=== PATIENT | male | born 1945 | race Native Hawaiian/Other Pacific Islander ===

== ENCOUNTER 2016-12-02 10:05 | Outpatient (CLI) | payer OTHER | END 2016-12-02 19:31 | disposition home or self-care (01) | LOC: RESP 10:05 | DX: R06.09 Other forms of dyspnea (principal) | CPT/HCPCS: 94664 ==

== ENCOUNTER 2017-02-20 15:01 | Outpatient (CLI) | payer OTHER | END 2017-02-20 22:06 | disposition home or self-care (01) | LOC: LABW 15:01 | DX: R09.02 Hypoxemia (principal) | CPT/HCPCS: 36415; 36600; 82785; 82805; 86003 ==

== ENCOUNTER 2018-05-01 16:16 | Outpatient (CLI) | payer OTHER | END 2018-05-01 19:59 | disposition home or self-care (01) | LOC: RAD 16:16 | DX: Z01.818 Encounter for other preprocedural examination (principal) ==

== ENCOUNTER 2018-05-20 07:31 | Day surgery (SDC) | payer OTHER | END 2018-05-20 09:44 | disposition home or self-care (01) | LOC: OR 07:31 | PROC: 3E0T3TZ Introduction of Destructive Agent into Peripheral Nerves and Plexi, Percutaneous Approach (ICD-10-PCS; principal; 2018-05-20) | PROC: BR16YZZ Fluoroscopy of Lumbar Facet Joint(s) using Other Contrast (ICD-10-PCS; 2018-05-20) | DX: M47.817 Spondylosis without myelopathy or radiculopathy, lumbosacral region (principal) | CPT/HCPCS: J2001 ==

== ENCOUNTER 2018-06-02 08:49 | Outpatient (CLI) | payer OTHER | END 2018-06-02 20:14 | disposition home or self-care (01) | LOC: RESP 08:49 | DX: G47.39 Other sleep apnea (principal) ==

== ENCOUNTER 2018-06-03 07:43 | Day surgery (SDC) | payer OTHER | END 2018-06-03 09:15 | disposition home or self-care (01) | LOC: OR 07:43 | PROC: 3E0T3TZ Introduction of Destructive Agent into Peripheral Nerves and Plexi, Percutaneous Approach (ICD-10-PCS; principal; 2018-06-03) | PROC: BR16YZZ Fluoroscopy of Lumbar Facet Joint(s) using Other Contrast (ICD-10-PCS; 2018-06-03) | DX: M47.896 Other spondylosis, lumbar region (principal); M54.5 Low back pain; M47.817 Spondylosis without myelopathy or radiculopathy, lumbosacral region | CPT/HCPCS: J2001 ==

== ENCOUNTER 2018-09-22 09:15 | Day surgery (SDC) | payer OTHER ==
[~2018-09-22] VITALS: Ht 30.5 cm; Wt 0.5 kg
== END 2018-09-22 11:46 | disposition home or self-care (01) ==
LOC: OR 09:15
PROC: 3E0R33Z Introduction of Anti-inflammatory into Spinal Canal, Percutaneous Approach (ICD-10-PCS; principal; 2018-09-22)
PROC: 3E0R3BZ Introduction of Anesthetic Agent into Spinal Canal, Percutaneous Approach (ICD-10-PCS; 2018-09-22)
DX: M53.3 Sacrococcygeal disorders, not elsewhere classified (principal); M46.1 Sacroiliitis, not elsewhere classified
CPT/HCPCS: J1020; J3490

== ENCOUNTER 2019-02-17 13:26 | Outpatient (CLI) | payer OTHER ==
[2019-02-17 14:06] LABS: POTASSIUM 3.8 mmol/L (3.6-5.2)
== END 2019-02-17 19:28 | disposition home or self-care (01) ==
LOC: LABW 13:26
PROVIDERS: Internal Medicine Cardiovascular Disease
DX: Z79.899 Other long term (current) drug therapy (principal)
CPT/HCPCS: 36415; 80048; 83880

== ENCOUNTER 2019-12-09 09:15 | Outpatient (CLI) | payer OTHER ==
[2019-12-09 09:41] LABS: POTASSIUM 3.8 mmol/L (3.6-5.2)
[2019-12-09 09:53] LABS: PLATELET COUNT 203 K/uL (142-355)
== END 2019-12-09 23:11 | disposition home or self-care (01) ==
LOC: LABW 09:15
PROVIDERS: Internal Medicine Cardiovascular Disease
DX: Z79.899 Other long term (current) drug therapy (principal)
CPT/HCPCS: 36415; 80053; 80061; 85027

== ENCOUNTER 2020-05-02 07:43 | Outpatient (CLI) | payer OTHER | END 2020-05-02 21:39 | disposition home or self-care (01) | LOC: US 07:43 | PROVIDERS: ATTEND Nurse Practitioner Family | DX: M79.605 Pain in left leg (principal) ==

== ENCOUNTER 2020-07-13 10:19 | Outpatient (CLI) | payer OTHER ==
[~2020-07-13] VITALS: Ht 165.1 cm; Wt 99.3 kg
== END 2020-07-13 22:46 | disposition home or self-care (01) ==
LOC: NM 10:19
PROVIDERS: ATTEND Internal Medicine Cardiovascular Disease
DX: R07.89 Other chest pain (principal)
CPT/HCPCS: A9500; J2785

== ENCOUNTER 2020-07-26 12:05 | Outpatient (CLI) | payer OTHER | END 2020-07-26 22:21 | disposition home or self-care (01) | LOC: RAD 12:05 | PROVIDERS: ATTEND Physical Medicine & Rehabilitation Pain Medicine | DX: M47.816 Spondylosis without myelopathy or radiculopathy, lumbar region (principal) ==

== ENCOUNTER 2020-08-04 08:55 | Outpatient (CLI) | payer OTHER | END 2020-08-04 23:59 | disposition home or self-care (01) | LOC: MRI 08:55 | PROVIDERS: ATTEND Physical Medicine & Rehabilitation Pain Medicine | DX: M54.16 Radiculopathy, lumbar region (principal); G89.4 Chronic pain syndrome ==

== ENCOUNTER 2020-09-14 13:50 | Outpatient (CLI) | payer OTHER ==
[2020-09-14 14:29] LABS: PLATELET COUNT 208 K/uL (142-355)
== END 2020-09-14 20:36 | disposition home or self-care (01) ==
LOC: LABW 13:50
PROVIDERS: ATTEND Physical Medicine & Rehabilitation Pain Medicine
DX: G89.4 Chronic pain syndrome (principal); Z79.899 Other long term (current) drug therapy
CPT/HCPCS: 36415; 81000; 85027; 85610; 87070

== ENCOUNTER 2021-02-14 11:18 | Outpatient (CLI) | payer OTHER ==
[2021-02-14 11:41] LABS: PLATELET COUNT 180 K/uL (142-355)
[2021-02-14 11:56] LABS: POTASSIUM 4.3 mmol/L (3.6-5.2)
== END 2021-02-14 20:01 | disposition home or self-care (01) ==
LOC: LABW 11:18
PROVIDERS: ATTEND Internal Medicine Cardiovascular Disease
DX: Z79.899 Other long term (current) drug therapy (principal)
CPT/HCPCS: 36415; 80053; 80061; 85027

== ENCOUNTER 2021-02-21 14:08 | Outpatient (CLI) | payer OTHER | END 2021-02-21 19:17 | disposition home or self-care (01) | LOC: US 14:08 | PROVIDERS: ATTEND Internal Medicine Cardiovascular Disease | DX: R09.89 Other specified symptoms and signs involving the circulatory and respiratory systems (principal) ==

== ENCOUNTER 2021-06-20 12:57 | Outpatient (CLI) | payer OTHER ==
[2021-06-20 13:12] LABS: POTASSIUM 4.5 mmol/L (3.6-5.2)
== END 2021-06-20 18:54 | disposition home or self-care (01) ==
LOC: LABW 12:57
PROVIDERS: ATTEND Internal Medicine Cardiovascular Disease
DX: Z79.899 Other long term (current) drug therapy (principal)
CPT/HCPCS: 36415; 80048

== ENCOUNTER 2021-08-14 10:22 | Outpatient (CLI) | payer OTHER ==
[2021-08-14 10:38] LABS: POTASSIUM 4.6 mmol/L (3.6-5.2)
== END 2021-08-14 18:52 | disposition home or self-care (01) ==
LOC: LABW 10:22
PROVIDERS: ATTEND Internal Medicine Cardiovascular Disease
DX: Z79.899 Other long term (current) drug therapy (principal)
CPT/HCPCS: 36415; 80048

== ENCOUNTER 2021-08-22 10:22 | Outpatient (CLI) | payer OTHER ==
[2021-08-22 10:56] LABS: POTASSIUM 4.4 mmol/L (3.6-5.2)
== END 2021-08-22 18:54 | disposition home or self-care (01) ==
LOC: LABW 10:22
PROVIDERS: ATTEND Internal Medicine Cardiovascular Disease
DX: Z79.899 Other long term (current) drug therapy (principal)
CPT/HCPCS: 36415; 80048

== ENCOUNTER 2022-06-11 09:07 | Outpatient (CLI) | payer OTHER | END 2022-06-11 19:19 | disposition home or self-care (01) | LOC: CT 09:07 | PROVIDERS: ATTEND Nurse Practitioner Family | DX: M54.16 Radiculopathy, lumbar region (principal) ==